=== PATIENT | female | born 1960 | race Caucasian/White ===

== ENCOUNTER 2019-07-08 10:57 | Emergency (ER) | payer SELFPAY ==
[~2019-07-08] VITALS: Ht 177.8 cm; Wt 64.0 kg
[~2019-07-08 10:57] MED LIST: CRES20 PO; METO-335 PO
[2019-07-08 11:02] VITALS: Ht 177.8 cm; Wt 64.0 kg
[2019-07-08] MEDS ORDERED: MAGNESIUM SULFATE 1 GM/D5W 100 ML IVPB ONE (17:00)
[2019-07-08] MEDS ORDERED: MAGNESIUM CHLORIDE (SR) 64 MG TAB PO ONE (17:00)
--- NOTE | 2019-07-08 17:06 | ERD ---
ER Documentation Chief Complaint Chief Complaint feels like K low; leg cramping; pt not in distress HPI 58-year-old female who presents to the emergency room complaining of muscle cramping. The patient does take a statin. She also states a history of hypomagnesemia. She describes panting cramping in her bilateral feet and legs. No fevers or chills. Symptoms are moderate. ROS All systems reviewed and are negative except as per history of present illness. Medications Home Meds Reported Medications Rosuvastatin Calcium* (Crestor*) 20 Mg Tablet, 20 MG PO QHS, #30 TAB 07/08/19 Metoprolol Succinate* (Toprol XL*) 25 Mg Tab.sr.24h, 25 MG PO DAILY, #30 TAB 07/08/19 Allergies Allergies: Coded Allergies: codeine (Verified Allergy, Unknown, 07/08/19) sulfamethoxazole (Verified Allergy, Unknown, 07/08/19) trimethoprim (Verified Allergy, Unknown, 07/08/19) PMhx/Soc History of Surgery: Yes (Cholecystectomy, tonsillectomy, X2 ) Anesthesia Reaction: No Hx Neurological Disorder: No Hx Respiratory Disorders: No Hx Cardiac Disorders: No Hx Psychiatric Problems: No Hx Alcohol Use: Yes (social) Hx Substance Use: No Hx Tobacco Use: No Smoking Status: Never smoker FmHx Family History: No diabetes Physical Exam Vitals Vital Signs Date Temp Pulse Resp B/P (MAP) Pulse Ox O2 O2 Flow FiO2 Time Delivery Rate 07/08/19 98.2 82 17 126/80 100 Room Air 16:45 (95) 07/08/19 98.0 95 20 135/78 98 11:02 (97) Physical Exam General: Well developed, well nourished, no acute distress Head: Normocephalic, atraumatic. Eyes: Pupils equally reactive, EOM intact ENT: Moist mucous membranes Neck: Supple, no lymphadenopathy Respiratory: Lungs clear bilaterally, no distress Cardiovascular: RRR, no murmurs, rubs, or gallops Abdominal: Soft, non-tender, non-distended, no peritoneal signs : Deferred MSK: No edema, no unilateral swelling, 5/5 strength Neurologic: Alert and oriented, moving all extremities, normal speech, no focal weakness, no cerebellar signs Skin: No rash Psych: Normal mood Result Diagram: 07/08/19 1551 07/08/19 1551 Results 24 hrs Laboratory Tests Test 07/08/19 15:51 07/08/19 15:52 White Blood Count 3.9 10^3/ul Red Blood Count 4.85 10^6/ul Hemoglobin 15.3 g/dl Hematocrit 47.3 % Mean Corpuscular Volume 97.5 fl Mean Corpuscular Hemoglobin 31.5 pg Mean Corpuscular Hemoglobin Concent 32.3 g/dl Red Cell Distribution Width 11.8 % Platelet Count 133 10^3/UL Mean Platelet Volume 9.8 fl Immature Granulocytes % 0.300 % Neutrophils % 55.4 % Lymphocytes % 31.7 % Monocytes % 9.2 % Eosinophils % 2.6 % Basophils % 0.8 % Nucleated Red Blood Cells % 0.0 /100WBC Immature Granulocytes # 0.010 10^3/ul Neutrophils # 2.2 10^3/ul Lymphocytes # 1.2 10^3/ul Monocytes # 0.4 10^3/ul Eosinophils # 0.1 10^3/ul Basophils # 0.0 10^3/ul Nucleated Red Blood Cells # 0.0 10^3/ul Sodium Level 139 mmol/L Potassium Level 4.0 mmol/L Chloride Level 100 mmol/L Carbon Dioxide Level 33 mmol/L Anion Gap 6 Blood Urea Nitrogen 16 mg/dl Creatinine 0.57 mg/dl Est Glomerular Filtrat Rate mL/min > 60 mL/min Glucose Level 90 mg/dl Calcium Level 9.8 mg/dl Creatine Kinase 115 IU/L Magnesium Level 1.5 mg/dl Current Medications Medications Dose Sig/Mariana Start Time Status Last (Trade) Ordered Route PRN Stop Time Admin Dose Reason Admin Magnesium 100 ml @ ONCE ONCE 07/08/19 DC Sulfate/ 100 mls/hr IVPB 17:00 Dextrose 07/08/19 17:00 Magnesium 64 mg ONCE ONCE 07/08/19 DC Chloride PO 17:00 (Mag 64) 07/08/19 17:01 Procedures/MDM LAB INTERPRETATION: I reviewed the laboratory testing and it shows slightly low magnesium MEDICAL DECISION MAKING: Patient has muscle cramping. She states that she has a history of this with low magnesium. No signs or symptoms concerning for rhabdomyolysis, vascular occlus ion. DVT. ER COURSE: * Patient can be safely discharged with close primary care follow-up. * Patient given oral replacement for magnesium. No evidence of rhabdo. CONSULTATION: None DISPOSITION PLAN: The patient does not have an identifiable emergent medical condition that warrants inpatient hospitalization at this time. The patient is deemed safe for discharge with outpatient follow-up. We discussed follow up with the patient's primary care doctor within 24 to 48 hours as needed. We also discussed return to the emergency room for worsening symptoms or worsening condition. Outpatient referral: None required Discharge Medications: None required Departure Diagnosis: Primary Impression: Hypomagnesemia Condition: Stable Patient Instructions: Hypomagnesemia Referrals: [facility], [facility]–1983 YOU HAVE RECEIVED A MEDICAL SCREENING EXAM AND THE RESULTS INDICATE THAT YOU DO NOT HAVE A CONDITION THAT REQUIRES URGENT TREATMENT IN THE EMERGENCY DEPARTMENT. FURTHER EVALUATION AND TREATMENT OF YOUR CONDITION CAN WAIT UNTIL YOU ARE SEEN IN YOUR DOCTORS OFFICE WITHIN THE NEXT 1-2 DAYS. IT IS YOUR RESPONSIBILITY TO MAKE AN APPOINTMENT FOR FOLOW-UP CARE. IF YOU HAVE A PRIMARY DOCTOR --you should call your primary doctor and schedule an appointment IF YOU DO NOT HAVE A PRIMARY DOCTOR YOU CAN CALL OUR PHYSICIAN REFERRAL HOTLINE AT IF YOU CAN NOT AFFORD TO SEE A PHYSICIAN YOU CAN CHOSE FROM THE FOLLOWING [facility] [address] [facility]. [facility] [address] [facility]. [facility] [address] [facility] [facility] [address]. [facility] [address] [facility]. [facility]. [address] [facility]. [facility] YOU HAVE RECEIVED A MEDICAL SCREENING EXAM AND THE RESULTS INDICATE THAT YOU DO NOT HAVE A CONDITION THAT REQUIRES URGENT TREATMENT IN THE EMERGENCY DEPARTMENT. FURTHER EVALUATION AND TREATMENT OF YOUR CONDITION CAN WAIT UNTIL YOU ARE SEEN IN YOUR DOCTORS OFFICE WITHIN THE NEXT 1-2 DAYS. IT IS YOUR RESPONSIBILITY TO MAKE AN APPOINTMENT FOR FOLOW-UP CARE. IF YOU HAVE A PRIMARY DOCTOR --you should call your primary doctor and schedule and appointment IF YOU DO NOT HAVE A PRIMARY DOCTOR YOU CAN CALL OUR PHYSICIAN REFERRAL HOTLINE AT . IF YOU CAN NOT AFFORD TO SEE A PHYSICIAN YOU CAN CHOSE FROM THE FOLLOWING PENDING SALE TO [facility]: [facility] [address] [place] [address] [facility] [address] [place] [address] [facility] [address] [place] [address] Additional Instructions: Call your primary care doctor TOMORROW for an appointment during the next 1 WEEK.Tell the racing secretary and handicapper that you were referred from this facility.See the doctor sooner or return here if your condition worsens before your appointment time. CORONA POLLARD MD Jul 08, 2019 17:05
[2019-07-08 17:41] VITALS: BP 144/82; PULSE 79; RESP 19
== END 2019-07-08 17:43 | disposition home or self-care (01) ==
LOC: E/R 10:57
DX: E83.42 Hypomagnesemia (principal)
CPT/HCPCS: 80048; 82550; 83735; 85025; 99283